=== PATIENT | female | born 1940 | race Caucasian/White ===

== ENCOUNTER 2017-01-06 06:24 | Day surgery (SDC) | payer MEDICARE ==
[~2017-01-06 06:24] MED LIST: Acetaminophen TAB* 325 MG PO PRN; Buffered Lidocaine 0.9% SYRIN* 5 ML/SYR SYRINGE INTRADERM ONE
[2017-01-06] MEDS ORDERED: Midazolam* 1 MG/ML 2 ML VIAL (2 MG) ONE (07:30)
[2017-01-06] MEDS ORDERED: Povidone Iodine 5% OPTH* 30 ML BTL ONE (07:57)
[2017-01-06] MEDS ORDERED: Cyclopentolate 1% OPTH.SOL* 2 ML BTL ONE (07:57)
[2017-01-06] MEDS ORDERED: Phenylephrine 2.5% OPTH.SOL* 2 ML BTL ONE (07:57)
[2017-01-06] MEDS ORDERED: acetaZOLAMIDE TAB* 250 MG ONE (07:57)
[2017-01-06] MEDS ORDERED: Lidocaine 1% MPF* 2 ML VIAL ONE (07:57)
[2017-01-06] MEDS ORDERED: Neomycin/Polymy/Dex OPTH.SUSP* MAXITROL 0.1% 5 ML ONE (07:57)
[2017-01-06] MEDS ORDERED: Buffered Lidocaine 0.9% SYRIN* 5 ML/SYR SYRINGE ONE (07:58)
[2017-01-06] MEDS ORDERED: Ketorolac 0.5% OPHTH (NF) 0.5 % 5 ML BTL ONE (07:58)
[2017-01-06] MEDS ORDERED: Proparacaine 0.5% OPHTH.SOL* 15 ML BTL ONE (07:58)
[2017-01-06 08:14] VITALS: BP 124/66
--- NOTE | 2017-01-06 08:56 | OP ---
DATE OF OPERATION: 01/06/17 [facility] DATE OF : 40 SURGEON: Anton Ramirez M.D. PREOPERATIVE DIAGNOSIS: Cataract left eye. POSTOPERATIVE DIAGNOSIS: Cataract left eye. OPERATIVE PROCEDURE: Phacoemulsification left eye with intraoperative lens implant. DESCRIPTION OF PROCEDURE: The patient was brought to the operating room after being given 1/2% Alcaine with epinephrine drops in the preoperative area. The eye was prepped and draped in the usual sterile fashion. Sterile drape and eyelid speculum were placed. Again, topical 1/2% Alcaine with epinephrine was given. A paracentesis incision was made at the 3 o'clock position with the No.75 blade. Clear cornea incision 2.2 x 2.2-mm was created at the 6 o'clock position starting at the anterior limbus using the 2.2-mm keratome. The anterior chamber was irrigated with 0.4 mL of 1% non-preservative intracameral lidocaine and filled with DisCoVisc. A capsulorrhexis was completed using the cystotome and the Utrata forceps. Hydrodissection was performed with balanced salt solution. The lens nucleus was removed with the Phacoemulsification handpiece without incident. Cortex was removed with the irrigation-aspiration handpiece. The capsular bag was re-inflated using DisCoVisc and an SN60WF 12.5 implant was inserted with the shooter. The irrigation-aspiration handpiece was used to remove all residual DisCoVisc. The eye was refilled with balanced salt solution and the wound checked and found to be watertight. Topical Maxitrol drops were given. [id number]/[facility] #: [id number] [facility]
== END 2017-01-06 08:12 | disposition home or self-care (01) ==
LOC: OREAST 06:24
PROVIDERS: ATTEND Specialist
DX: H25.13 Age-related nuclear cataract, bilateral (principal); E78.00 Pure hypercholesterolemia, unspecified; Z79.84 Long term (current) use of oral hypoglycemic drugs; H43.813 Vitreous degeneration, bilateral; E11.3293 Type 2 diabetes mellitus with mild nonproliferative diabetic retinopathy without macular edema, bilateral; Z85.3 Personal history of malignant neoplasm of breast; M81.0 Age-related osteoporosis without current pathological fracture; F32.9 Major depressive disorder, single episode, unspecified; E66.9 Obesity, unspecified
CPT/HCPCS: A9270-GY; J2250; V2632

== ENCOUNTER 2017-01-11 08:18 | Day surgery (SDC) | payer MEDICARE ==
[2017-01-11] MEDS ORDERED: Midazolam* 1 MG/ML 2 ML VIAL (2 MG) ONE (09:51)
[2017-01-11 11:08] VITALS: BP 128/62
[2017-01-11] MEDS ORDERED: Ketorolac 0.5% OPHTH (NF) 0.5 % 5 ML BTL ONE (13:59)
[2017-01-11] MEDS ORDERED: Proparacaine 0.5% OPHTH.SOL* 15 ML BTL ONE (13:59)
[2017-01-11] MEDS ORDERED: acetaZOLAMIDE TAB* 250 MG ONE (13:59)
[2017-01-11] MEDS ORDERED: Cyclopentolate 1% OPTH.SOL* 2 ML BTL ONE (13:59)
[2017-01-11] MEDS ORDERED: Neomycin/Polymy/Dex OPTH.SUSP* MAXITROL 0.1% 5 ML ONE (13:59)
[2017-01-11] MEDS ORDERED: Lidocaine 1% MPF* 2 ML VIAL ONE (13:59)
[2017-01-11] MEDS ORDERED: Buffered Lidocaine 0.9% SYRIN* 5 ML/SYR SYRINGE ONE (13:59)
[2017-01-11] MEDS ORDERED: Phenylephrine 2.5% OPTH.SOL* 2 ML BTL ONE (13:59)
[2017-01-11] MEDS ORDERED: Povidone Iodine 5% OPTH* 30 ML BTL ONE (13:59)
--- NOTE | 2017-01-11 23:08 | OP ---
DATE OF OPERATION: 01/11/17 - [facility] DATE OF : 40 SURGEON: Anton Ramirez M.D. PREOPERATIVE DIAGNOSIS: Cataract, right eye. POSTOPERATIVE DIAGNOSIS: Cataract, right eye. OPERATIVE PROCEDURE: Phacoemulsification, right eye, with IOL. DESCRIPTION OF PROCEDURE: The patient was brought to the operating room after being given 1/2% Alcaine with epinephrine drops in the preoperative area. The eye was prepped and draped in the usual sterile fashion. Sterile drape and eyelid speculum were placed. Again, topical 1/2% Alcaine with epinephrine was given. A paracentesis incision was made at the 9 o'clock position with the No.75 blade. Clear cornea incision 2.2 x 2.2-mm was created at the 12 o'clock position starting at the anterior limbus using the 2.2-mm keratome. The anterior chamber was irrigated with 0.4 mL of 1% non-preservative intracameral lidocaine and filled with DisCoVisc. A capsulorrhexis was completed using the cystotome and the Utrata forceps. Hydrodissection was performed with balanced salt solution. The lens nucleus was removed with the Phacoemulsification handpiece without incident. Cortex was removed with the irrigation-aspiration handpiece. The capsular bag was re-inflated using DisCoVisc and an SN60WF 12.5 implant was inserted with the shooter. The irrigation-aspiration handpiece was used to remove all residual DisCoVisc. The eye was refilled with balanced salt solution and the wound checked and found to be watertight. Topical Maxitrol drops were given. [id number]/[facility] #: [id number] [facility]
== END 2017-01-11 10:55 | disposition home or self-care (01) ==
LOC: OREAST 08:18
PROVIDERS: ATTEND Specialist
DX: H25.11 Age-related nuclear cataract, right eye (principal); H43.813 Vitreous degeneration, bilateral; E11.3293 Type 2 diabetes mellitus with mild nonproliferative diabetic retinopathy without macular edema, bilateral; Z79.84 Long term (current) use of oral hypoglycemic drugs
CPT/HCPCS: A9270-GY; J2250; V2632

== ENCOUNTER 2021-11-25 11:05 | Observation (INO) ==
[~2021-11-25 11:05] MED LIST changes: -Acetaminophen TAB* 325 MG PO PRN; -Buffered Lidocaine 0.9% SYRIN* 5 ML/SYR SYRINGE INTRADERM ONE; +Buffered Lidocaine 1% SYRIN 1 ml INTRADERM ONE; +Famotidine IV 10 MG/ML 2 ml VIAL (20 mg) IV ONE; +Lactated Ringers 1000 ml BAG 1,000 ML IV SCH
[2021-11-25] MEDS ORDERED: fentaNYL 100 mcg/2 ml 50 MCG/ML VIAL ONE ×4 (11:23→16:49)
[2021-11-25] MEDS ORDERED: Lidocaine 2% PF 5 ML VIAL ONE ×2 (11:23→11:51)
[2021-11-25] MEDS ORDERED: Propofol 10 MG/ML 20 ML BTL ONE ×2 (11:23→12:10)
[2021-11-25] MEDS ORDERED: Midazolam 2 mg/2 ml VIAL 1 mg/ml 2 ml VIAL (2 mg) ONE (11:24)
[2021-11-25] MEDS ORDERED: Famotidine IV 10 MG/ML 2 ml VIAL (20 mg) ONE (11:27)
[2021-11-25] MEDS ORDERED: ceFAZolin 2 GM in NS PREMIX 2 GM/100 ML BAG IVPB ONE (11:27)
[2021-11-25] MEDS ORDERED: Midazolam 5 mg/5 ml VIAL 1 mg/ml 5 ml VIAL (5 mg) ONE (11:51)
[2021-11-25] MEDS ORDERED: ROPIVACAINE 5 MG/ML 30 ML BTL (0.5%) ONE ×2 (11:53→12:58)
[2021-11-25] MEDS ORDERED: Rocuronium 50 mg VIAL 10 mg/ml 5 ml VIAL (50 mg) ONE (13:34)
[2021-11-25] MEDS ORDERED: Ondansetron 4 mg VIAL 2 MG/ML 2 ml VIAL ONE (13:43)
[2021-11-25] MEDS ORDERED: Dexamethasone IV 4 MG/ML VIAL 1 ml VIAL ONE (13:43)
[2021-11-25] MEDS ORDERED: Sterile Water for Inj 10 ML ONE (13:56)
[2021-11-25] MEDS ORDERED: Phenylephrine IV 10 MG/ML 1 ml VIAL ONE (14:06)
[2021-11-25] MEDS ORDERED: HYDROmorphone 0.5 MG/0.5 ML SYRINGE ONE (14:17)
[2021-11-25] MEDS ORDERED: HYDROmorphone 1 MG/1 ML SYRINGE IV PRN (14:37)
[2021-11-25] MEDS ORDERED: Naloxone 0.4 mg VIAL 0.4 mg/ml 1 ml VIAL IV PRN (14:37)
[2021-11-25] MEDS ORDERED: Ondansetron 4 mg VIAL 2 MG/ML 2 ml VIAL IV PRN ×2 (14:37→15:50)
[2021-11-25] MEDS ORDERED: Acetaminophen IV 1 GM/100ML 100 ML IV ONE (14:49)
[2021-11-25] MEDS ORDERED: Morphine 2 MG/ML SYRINGE IV PRN (15:50)
[2021-11-25] MEDS ORDERED: Ondansetron ODT 4 mg TAB 4 MG TAB PO PRN (15:50)
[2021-11-25] MEDS ORDERED: Magnesium Hydroxide LIQ 30 ML UDC PO PRN (15:50)
[2021-11-25] MEDS ORDERED: Lactulose 30 ml UDC PO PRN (15:50)
[2021-11-25] MEDS ORDERED: Dextrose 50% Syringe 50 ml 25 GM/50 ML SYRINGE IV PUSH PRN (16:29)
[2021-11-25] MEDS: fentaNYL 100 mcg/2 ml 50 MCG/ML VIAL IV PRN ×2 (16:55→17:14)
[2021-11-25] MEDS ORDERED: ceFAZolin 1 GM ADVAN 1 GM in NS 0.9% 50 ML 50 ML IVPB SCH (17:00)
[2021-11-25] MEDS: Lactated Ringers 1000 ml BAG 1,000 ML IV SCH (18:15)
[2021-11-25] MEDS: Magnesium Hydroxide LIQ 30 ML UDC PO SCH (21:57)
[2021-11-25] MEDS: ceFAZolin 1 GM ADVAN 1 GM in NS 0.9% 50 ML 50 ML IVPB SCH (22:04)
[2021-11-26] MEDS: Lactated Ringers 1000 ml BAG 1,000 ML IV SCH (05:30)
[2021-11-26] MEDS: ceFAZolin 1 GM ADVAN 1 GM in NS 0.9% 50 ML 50 ML IVPB SCH ×2 (05:31→13:46)
[2021-11-26 06:36] LABS: Hematocrit 32 % (35-47); Hemoglobin 10.9 g/dL (12.0-16.0); Mean Platelet Volume 8.5 fL (7.4-10.4); Platelet Count 128 10^3/uL (150-450)
[2021-11-26 06:58] LABS: Calcium 8.4 mg/dL (8.6-10.3); Potassium 4.5 mmol/L (3.5-5.0); eGFR CKD-EPI 88.9 (>60)
[2021-11-26] MEDS: Magnesium Hydroxide LIQ 30 ML UDC PO SCH (08:15)
[2021-11-26] MEDS ORDERED: Vitamin THERAPEUTIC TAB PO SCH (09:00)
[2021-11-26 11:13] VITALS: BP 111/53
== END 2021-11-26 15:30 | disposition home or self-care (01) ==
LOC: SUATTDRO 11:05 → INTOOBSV 11:05 → AA 11:05 → SSU 18:10
PROVIDERS: ADMIT Orthopaedic Surgery Adult Reconstructive Orthopaedic Surgery; ATTEND Orthopaedic Surgery Adult Reconstructive Orthopaedic Surgery